=== PATIENT | female | born 1940 | race Caucasian/White ===

== ENCOUNTER → 2020-09-05 10:17 | Outpatient (CLI) | payer MEDICARE, SELFPAY ==
--- NOTE | ~2020-09-05 | MM_ITS ---
EXAMINATION: MM screening [facility] BI w adin HISTORY: Screening mammogram TECHNIQUE: Craniocaudal and mediolateral oblique 3-D tomosynthesis images were obtained and synthetic 2-D images were generated. CAD analysis was submitted and interpreted. COMPARISON: 04/2019, 07/11/2018, 04/05/2016 BREAST PARENCHYMAL COMPOSITION: There are scattered areas of fibroglandular density. FINDINGS: There is no evidence of suspicious mass, calcification, or architectural distortion to sugg est malignancy in either breast. There has been no suspicious interval change. IMPRESSION: 1. No mammographic evidence of malignancy. 2. Recommend routine screening mammography in one year. BI-RADS Category 1: Negative Reviewed, dictated and finalized at location A. LATOR PIN INSERTER
== END ==
PROVIDERS: PCP Internal Medicine; Visit Provider Obstetrics & Gynecology
DX: Z12.31 Encounter for screening mammogram for malignant neoplasm of breast (principal)
CPT/HCPCS: 77063; 77067

== ENCOUNTER → 2022-11-05 16:08 | Outpatient (CLI) | payer MEDICARE, SELFPAY ==
--- NOTE | ~2022-11-05 | MM_ITS ---
EXAMINATION: MM screening [facility] BI w adin HISTORY: Screening mammogram TECHNIQUE: Craniocaudal and mediolateral oblique 3-D tomosynthesis images were obtained and synthetic 2-D images were generated. CAD analysis was submitted and interpreted. COMPARISON: 09/05/2020, 04/24/2019, 07/11/2018 BREAST PARENCHYMAL COMPOSITION: There are scattered areas of fibroglandular density. FINDINGS: No suspicious mass, calcification, or architectural distortion are identified in either jonatan ast to suggest malignancy. There has been no suspicious interval change. IMPRESSION: 1. No mammographic evidence of malignancy. 2. Recommend routine screening mammography while the patient remains in good health. BI-RADS Category 1: Negative Reviewed, dictated and finalized at location A. IMPRESSION: 1. No mammographic evidence of malignancy. 2. Recommend routine screening mammography while the patient remains in good he alth. BI-RADS Category 1: Negative
== END ==
PROVIDERS: PCP Obstetrics & Gynecology; Visit Provider Obstetrics & Gynecology
DX: Z12.31 Encounter for screening mammogram for malignant neoplasm of breast (principal)
CPT/HCPCS: 77063; 77067

== ENCOUNTER → 2023-04-21 12:59 | Outpatient (CLI) | payer MEDICARE, SELFPAY ==
--- NOTE | ~2023-04-21 | DEXA_ITS ---
Bone Density Report Name: GERARDO WHITING Age: 82 Sex: Female Ethnicity: White Date of : 1940 Indication: postmenopausal; screening for osteoporosis; height loss; prior fracture; hysterectomy; Referring Provider: [place], Florentino Pruitt Study: Bone densitometry was performed. Exam Date: April 21, 2023 Accession number: [id number] Bone Density: Region BMD T-score Z-score Classification AP Spine (L1, L3, L4) 1.050 0.0 2.8 Normal Femoral Neck (Left) 0.607 -2.2 0.3 Osteopenia Total Hip (Left) 0.714 -1.9 0.4 Osteopenia World Health Organization criteria for BMD impression classify patients as: Normal (T-score at or above -1.0), Osteopenia (T-score between -1.0 and -2.5), or Osteoporosis (T-score at or below -2.5). 10-year Fracture Risk: FRAX not reported because: Prior hip or vertebral fracture Clinical Information Provided by Patient: Have had a previous hip or vertebral fracture Has had a low trauma fracture Has the following medical conditions: Hysterectomy Patient maximum height was 67 Menopause Age: 45 No regular weight bearing exercise Does not regularly consume dairy products Drinks caffeinated beverages Onset of menses at age 11 Number of children 2 Impression: The patient has low bone mass, based on the Left Femoral Neck T-score. The patient has risk factors, including: previous fracture. Discussion: INCREASED RISK OF FRACTURE DUE TO HISTORY OF FRACTURE. The patient's previous fracture puts the patient at high risk of a future fracture. In untreated patients, the risk of osteoporotic fracture increases approximately two-fold for each 1.0 SD decrease in T-score. Low bone density is not the only risk factor for fracture; also consider factors such as patient's age, frailty or poor health, risk of falling, risk of injury, previous osteoporotic fracture, family history of osteoporosis, cigarette smoking, low body weight, etc. Not everyone with a low trauma fracture has osteoporosis; osteomalacia and other metabolic bone disorders should also be considered. Patients who have osteoporosis should be evaluated for specific diseases and conditions (secondary causes) that may cause or contribute to bone loss and fracture risk. National Osteoporosis Foundation (NOF) recommends pharmacologic intervention for patients with a prior hip or vertebral fracture regardless of BMD T-score. The patient should follow a healthful lifestyle (good nutrition with adequate calcium and vitamin D, and appropriate weight-bearing exercise). Follow-Up: Consider a repeat BMD and Vertebral Fracture Assessment (VFA) exam in 2 years or sooner if medically necessary, to reassess this patient's status. Reported by: EMMY on 04/21/2023 1:43:00 PM. Reviewed, dictated and finalized at location AAnita JOEL
== END ==
PROVIDERS: PCP Internal Medicine; Visit Provider Internal Medicine
DX: Z78.0 Asymptomatic menopausal state (principal); M85.89 Other specified disorders of bone density and structure, multiple sites
CPT/HCPCS: 77080

== ENCOUNTER 2023-05-29 12:26 | Emergency (ER) | payer MEDICARE, SELFPAY ==
[2023-05-29 12:43] VITALS: BP 177/87; PULSE 72; RESP 16; TEMP 37; O2SAT 100
--- NOTE | 2023-05-29 16:57 | PC.NURSE ---
pt came to desk, stated i am going to go home encouraged to see pcp or return to ED if needed to be evaluated. pt agreeable
== END 2023-05-29 16:57 | disposition left against medical advice (07) ==
PROVIDERS: PCP Internal Medicine
DX: R51.9 Headache, unspecified (principal)
CPT/HCPCS: 99199

== ENCOUNTER 2023-07-26 09:27 | Emergency (ER) | payer MEDICARE, SELFPAY ==
[2023-07-26] VITALS (8 sets, daily range): BP systolic 136–164; BP diastolic 68–98; PULSE 56–68; RESP 16–20; TEMP 36.4–36.8; O2SAT 96–100
--- NOTE | 2023-07-26 13:14 | ECG_ITS ---
Measurements Intervals [place] Rate: 59 P: 25 DC: 191 QRS: -17 QRSD: 84 T: 30 QT: 369 QTc: 367 Interpretive Statements SINUS BRADYCARDIA INFERIOR INFARCT, AGE INDETERMINATE BASELINE WANDER- V1-V2, V6 ABNORMAL ECG COMPARED TO ECG 10/25/2018 06:36:07 SINUS BRADYCARDIA NOW PRESENT Electronically Signed On 07-26-2023 14:26:45 GANG VIBRATOR OPERATOR by Erik Garces D.O.
--- NOTE | 2023-07-26 13:14 | ED.GENADULT ---
HPI - General Adult General Chief complaint: Dizziness Stated complaint: dizzy/nausea Time Seen by Provider: 07/26/23 13:14 History of Present Illness HPI narrative: Patient is an 83-year-old female with history of hyperlipidemia, hypertension here today with dizziness. Patient notes that this morning she was getting up and taking down her some of her [place] decorations. She states she sat down and started noticing some dizziness. She describes this as feeling unsteady and thinking that if she were to stand up she may pass out. This was associated with some diaphoresis. She denies any associated chest pain or shortness of breath. She does note that she has had an intermittent headache with a pressure like sensation to the top over her head for the last week or so. She saw her PCP for this 5 days ago, had outpatient lab work and CT brain performed which were negative. Related Data Home Medications Medication Instructions Recorded Confirmed lisinopril 40 mg tablet 40 mg PO DAILY 09/02/21 11/30/22 lorazepam 1 mg tablet 1 mg PO DAILY PRN 09/02/21 11/30/22 metoprolol succinate 50 mg 50 mg PO DAILY 09/02/21 11/30/22 tablet,extended release 24 hr piroxicam 20 mg capsule 20 mg PO DAILY 09/02/21 11/30/22 pravastatin 40 mg tablet 40 mg PO QHS 09/02/21 11/30/22 tramadol 50 mg tablet 50 mg PO Q6H PRN 09/02/21 11/30/22 triamcinolone acetonide 0.1 % 1 applic topical DAILY 09/02/21 11/30/22 topical ointment Allergies Allergy/AdvReac Type Severity Reaction Status Date / Time ciprofloxacin Allergy Severe PASSES OUT Verified 05/29/23 12:47 Penicillins Allergy Intermediate Rash Verified 05/29/23 12:47 erythromycin base AdvReac Unknown Nausea and Verified 05/29/23 12:47 Vomiting Review of Systems Review of Systems: All systems reviewed & are unremarkable except as noted in HPI and below [facility] Past Medical History Medical History Anxiety Cataract High blood cholesterol Hypertension Screening mammogram, encounter for Surgical History Surgical History History of breast surgery at age 17 & 21 lt breast tumors removed--benign History of hip replacement 2008 rt hip History of knee surgery both knees History of total abdominal hysterectomy bilateral ovarian cysts--benign Family History Family History Father Lung cancer Social History Social History Smoking status: Never smoker Alcohol intake: never Substance use: never Substance use type: does not use Living arrangements: other Additional living arrangements comments: Occupation/Education: retired Gender identity (if verbalized by the patient): Female Sexual Orientation (if Verbalized by the Patient): Straight or Heterosexual Exam Narrative: GENERAL: Well-appearing, well-nourished, and in no acute distress. HEAD: Normocephalic, atraumatic. EYES: PERRLA and EOMI. ENT: Nares clear. Mucous membranes moist. NECK: Supple. CHEST: Clear to auscultation. No respiratory distress. HEART: Regular rate and rhythm. Normal peripheral pulses. ABDOMEN: Soft, nontender, nondistended. EXTREMITIES: Normal range of motion. No lower edema. SKIN: Warm, dry, no rash. Thickened dark skin plaques over her scalp and bilateral lower extremities. NEURO: No focal deficits. Alert and oriented x3. PSYCH: Normal mood and affect. Course Course Emergency Course: Chart review performed. Patient here with nausea, diaphoresis, and dizziness. Triage vitals grossly normal. OBGYN visit on 04/20/23 when she was seen for vaginal pain. Patient seen and evaluated. Asymptomatic at this time. Cardiac workup initiated for possible atypical cardiac presentation. Patient agreeable. No focal neurological deficits appreciated. Lab work and imagi
[2023-07-26 13:28] LABS: Basophils Percent Auto 0.5 % (0.2-1.2); Eosinophils Absolute Auto 0.2 K/mm3 (0-0.3); Eosinophils Percent Auto 2.7 % (0-4.4); Hematocrit 39.9 % (37.0-47.0); Hemoglobin 12.5 g/dL (12.0-15.0); Immature Granulocyte Absolute 0.03 K/mm3 (0.00-0.031); Immature Granulocyte Percent A 0.4 % (0-0.5); Lymphocytes Absolute Auto 2.29 K/mm3 (0.9-3.2); Lymphocytes Percent Auto 29.5 % (18.3-44.2); Mean Corpuscular HGB Conc 31.3 g/dl (32-36); Mean Corpuscular Hemoglobin 28.9 pg (26-34); Mean Corpuscular Volume 92.1 fl (80-100); Mean Platelet Volume 9.1 fl (7.4-10.4); Monocytes Absolute Auto 0.6 K/mm3 (0.1-0.6); Monocytes Percent Auto 7.2 % (2.6-8.5); Neutrophils Absolute Auto 4.6 K/mm3 (1.3-6.7); Neutrophils Percent Auto 59.7 % (45.5-73.1); Platelet Count Result 195 k/mm3 (150-375); Red Blood Count 4.33 M/mm3 (4.2-5.4); White Blood Count 7.8 K/mm3 (4.5-10.0)
[2023-07-26 13:42] LABS: Alanine Aminotransferase 19 U/L (6-35); Albumin Level 4.5 g/dL (3.5-5.1); Alkaline Phosphatase 80 U/L (38-126); Anion Gap 9 mmol/L (8-16); Aspartate Amino Transferase 26 U/L (14-36); Bilirubin,Total 0.7 mg/dL (0.2-1.3); Blood Urea Nitrogen 22 mg/dL (7-17); Calcium 10.3 mg/dL (8.4-10.2); Carbon Dioxide 26 mmol/L (22-30); Chloride 101 mmol/L (98-107); Estimated CRCL calculation 38 ml/min; Estimated Glomerular Filt Rate 53; Glucose 110 mg/dL (65-110); Lipase 83 U/L (23-300); Magnesium 1.5 mg/dL (1.6-2.3); Potassium 3.9 mmol/L (3.4-5.0); Prothrombin Time 13.6 Seconds (11.1-14.7); Sodium 136 mmol/L (137-145)
[2023-07-26 13:43] LABS: Partial Thromboplastin Time 26.8 SECONDS (22.3-36.8)
[2023-07-26] MEDS: MAGNESIUM SULF 2 GM/WATER 50ML 2 GM/50 ML BAG IVPB (13:53)
[2023-07-26 13:55] LABS: Troponin I < 0.012 ng/mL (0.000-0.034)
[2023-07-26 14:29] LABS: Influenza A QL RT-PCR Negative (Negative); Influenza B QL RT-PCR Negative (Negative); RSV RNA, RT-PCR Negative (Negative); SARS-CoV-2 RNA PCR Negative (Negative)
[2023-07-26] MEDS: SODIUM CHLORIDE 0.9% IV 1,000 ML 999 ML IV CONT (15:50)
--- NOTE | 2023-07-26 16:10 | ECG_ITS ---
Measurements Intervals [place] Rate: 57 P: -1 TX: 172 QRS: -13 QRSD: 90 T: 25 QT: 384 QTc: 376 Interpretive Statements SINUS BRADYCARDIA BASELINE ARTIFACT- I, II, III, AVR, AVL, AVF BORDERLINE ECG COMPARED TO ECG 07/26/2023 13:36:56 NO SIGNIFICANT CHANGES Electronically Signed On 07-26-2023 16:55:43 AD OPERATIONS COORDINATOR by Erik Garces D.O.
[2023-07-26 16:52] LABS: Troponin I < 0.012 ng/mL (0.000-0.034)
== END 2023-07-26 18:32 | disposition home or self-care (01) ==
PROVIDERS: Emergency Provider Student in an Organized Health Care Education/Training Program; PCP Internal Medicine
DX: R42 Dizziness and giddiness (principal); E83.42 Hypomagnesemia; R51.9 Headache, unspecified; E78.5 Hyperlipidemia, unspecified; I10 Essential (primary) hypertension; Z20.822 Contact with and (suspected) exposure to COVID-19
CPT/HCPCS: 36415; 80053; 83690; 83735; 84484; 85025; 85610; 85730; 87637; 93005; 96361; 96365; 99284; J3475; J7030

== ENCOUNTER 2023-09-01 11:25 | Emergency (ER) | payer MEDICARE, SELFPAY ==
--- NOTE | ~2023-09-01 | XR_ITS ---
EXAMINATION: XR chest 2V DATE: 09/01/2023 12:18 INDICATION: Dizziness, nausea and weakness TECHNIQUE: frontal and lateral views of the chest were obtained. COMPARISON: Chest radiograph dated 10/25/2018 FINDINGS: Minimal streaky atelectasis at the bilateral lung bases. No pulmonary edema, pleural effusion or pneu mothorax. The cardiomediastinal silhouette is normal. 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 Mild thoracic kyphosis with chronic anterior wedging of a midthoracic vertebral body. Severe spondylosis. IMPRESSION: 1. Minimal bibasilar atelectasis. Reviewed, dictated and finalized at location A. ITAL ADMINISTRATIVE ASSISTANT
--- NOTE | 2023-09-01 11:29 | ECG_ITS ---
Measurements Intervals [place] Rate: 68 P: 43 IA: 185 QRS: -22 QRSD: 87 T: 45 QT: 348 QTc: 372 Interpretive Statements SINUS RHYTHM BORDERLINE LEFT AXIS DEVIATION [QRS AXIS < -20] COMPARED TO ECG 07/26/2023 16:16:42 SINUS RHYTHM NOW PRESENT Electronically Signed On 09-01-2023 15:01:20 SEAM PRESS OPERATOR by Akilah Mena M.D.
[2023-09-01 11:32] VITALS: BP 171/76; PULSE 66; RESP 12; TEMP 36.4; O2SAT 100
[2023-09-01 11:46] VITALS: PULSE 65
[2023-09-01 12:03] LABS: Basophils Percent Auto 0.4 % (0.2-1.2); Eosinophils Absolute Auto 0.3 K/mm3 (0-0.3); Eosinophils Percent Auto 3.2 % (0-4.4); Hematocrit 38.6 % (37.0-47.0); Hemoglobin 12.5 g/dL (12.0-15.0); Immature Granulocyte Absolute 0.01 K/mm3 (0.00-0.031); Immature Granulocyte Percent A 0.1 % (0-0.5); Lymphocytes Absolute Auto 1.99 K/mm3 (0.9-3.2); Lymphocytes Percent Auto 24.8 % (18.3-44.2); Mean Corpuscular HGB Conc 32.4 g/dl (32-36); Mean Corpuscular Hemoglobin 29.1 pg (26-34); Mean Platelet Volume 9.3 fl (7.4-10.4); Monocytes Absolute Auto 0.7 K/mm3 (0.1-0.6); Monocytes Percent Auto 8.2 % (2.6-8.5); Neutrophils Absolute Auto 5.1 K/mm3 (1.3-6.7); Neutrophils Percent Auto 63.3 % (45.5-73.1); Platelet Count Result 171 k/mm3 (150-375); Red Blood Count 4.29 M/mm3 (4.2-5.4)
[2023-09-01 12:14] LABS: Alanine Aminotransferase 17 U/L (6-35); Albumin Level 4.1 g/dL (3.5-5.1); Alkaline Phosphatase 82 U/L (38-126); Anion Gap 6 mmol/L (8-16); Aspartate Amino Transferase 24 U/L (14-36); Blood Urea Nitrogen 23 mg/dL (7-17); Calcium 10.5 mg/dL (8.4-10.2); Carbon Dioxide 26 mmol/L (22-30); Chloride 102 mmol/L (98-107); Estimated CRCL calculation 39 ml/min; Estimated Glomerular Filt Rate 53; Glucose 97 mg/dL (65-110); Potassium 4.4 mmol/L (3.4-5.0); Sodium 134 mmol/L (137-145)
[2023-09-01 12:44] LABS: Appearance Urine Clear (Clear); Bilirubin Urine Negative (Negative); Blood Urine Negative (Negative); Color Urine Yellow (Yellow); Glucose Urine UA Negative (Negative); Ketones Urine Negative (Negative); Leukocyte Esterase Ur Negative LEU/UL (Negative); Nitrate Urine Negative (Negative); Protein Urine Negative (Negative); Specific Grav Ur 1.006 (1.001-1.035); Urobilinogen Urine 0.2 mg/dL (<2.0); pH Urine 6.5 (5.0-9.0)
[2023-09-01 12:45] LABS: Add Urine Microscopic? NO
[2023-09-01 13:27] VITALS: BP 153/81; PULSE 69; RESP 15; O2SAT 100
[2023-09-01 13:36] LABS: Magnesium 1.9 mg/dL (1.6-2.3)
--- NOTE | 2023-09-01 14:11 | ED.GENADULT ---
HPI - General Adult General Chief complaint: Weakness Stated complaint: WEAK AND DIZZY Time Seen by Provider: 09/01/23 12:59 History of Present Illness HPI narrative: Patient is an 83-year-old female who presents to the emergency this afternoon complaining of mild weakness and dizziness. Patient states that she was here approximately 2 weeks ago for similar symptoms and at that time her magnesium level was noted to be low. It was replaced and patient was placed on oral magnesium which she has been taking as prescribed. Patient states that when she woke up this and got out of bed she felt a little dizzy. When further questioned regarding the dizziness, patient denies any room spinning sensation and denies any near syncopal episodes. States that she only feels that way when she gets up from lying down or sitting down too fast. Patient denies any additional symptoms including chest pain, shortness of breath, nausea, vomiting, abdominal pain, dysuria, hematuria, constipation, diarrhea, melena, hematochezia, fevers or chills. Patient also denies any headaches, blurry visions, focal weakness, numbness and or tingling. There are no other modifying, alleviating, or precipitating factors at this time. Related Data Home Medications Medication Instructions Recorded Confirmed lisinopril 40 mg tablet 40 mg PO DAILY 09/02/21 11/30/22 lorazepam 1 mg tablet 1 mg PO DAILY PRN 09/02/21 11/30/22 metoprolol succinate 50 mg 50 mg PO DAILY 09/02/21 11/30/22 tablet,extended release 24 hr piroxicam 20 mg capsule 20 mg PO DAILY 09/02/21 11/30/22 pravastatin 40 mg tablet 40 mg PO QHS 09/02/21 11/30/22 tramadol 50 mg tablet 50 mg PO Q6H PRN 09/02/21 11/30/22 triamcinolone acetonide 0.1 % 1 applic topical DAILY 09/02/21 11/30/22 topical ointment Allergies Allergy/AdvReac Type Severity Reaction Status Date / Time ciprofloxacin Allergy Severe PASSES OUT Verified 05/29/23 12:47 Penicillins Allergy Intermediate Rash Verified 05/29/23 12:47 erythromycin base AdvReac Unknown Nausea and Verified 05/29/23 12:47 Vomiting Review of Systems Review of Systems: All systems are reviewed and are negative unless stated otherwise in the [facility] Past Medical History Medical History Anxiety Cataract High blood cholesterol Hypertension Screening mammogram, encounter for Surgical History Surgical History History of breast surgery at age 17 & 21 lt breast tumors removed--benign History of hip replacement 2008 rt hip History of knee surgery both knees History of total abdominal hysterectomy bilateral ovarian cysts--benign Family History Family History Father Lung cancer Social History Social History Smoking status: Never smoker Alcohol intake: never Substance use: never Substance use type: does not use Living arrangements: other Additional living arrangements comments: Occupation/Education: retired Gender identity (if verbalized by the patient): Female Sexual Orientation (if Verbalized by the Patient): Straight or Heterosexual Exam Narrative: General: Alert, awake, afebrile, in no acute distress. HEENT: PERRL, no rhinorrhea, no post nasal drip, oropharynx clear. Neck: Trachea midline, no JVD, no lymphadenopathy. Cardiovascular: Regular rate and rhythm, no murmurs, rubs or gallops, no peripheral edema. Respiratory: Clear to auscultation bilaterally, no tachypnea, no wheezing, no rhonchi, no rubs, no respiratory distress. Abdomen: Soft, nontender, nondistended, no rebound, no guarding, no peritoneal signs. Musculoskeletal: No joint swelling or deformity, normal muscle tone. Skin: No rashes or petechia, no signs of infection. Psychiatric: Alert and oriented, normal behavior and judgment fo
[2023-09-01 14:28] VITALS: BP 153/65; PULSE 76; RESP 19; O2SAT 97
== END 2023-09-01 15:41 | disposition home or self-care (01) ==
PROVIDERS: Emergency Provider Emergency Medicine; PCP Internal Medicine
DX: R53.1 Weakness (principal); R42 Dizziness and giddiness; E78.00 Pure hypercholesterolemia, unspecified; I10 Essential (primary) hypertension; F41.9 Anxiety disorder, unspecified; Z96.641 Presence of right artificial hip joint; Z90.710 Acquired absence of both cervix and uterus; R94.31 Abnormal electrocardiogram [ECG] [EKG]
CPT/HCPCS: 36415; 71046; 80053; 81003; 83735; 85025; 93005; 99284

== ENCOUNTER 2023-09-19 16:35 | Emergency (ER) | payer MEDICARE, SELFPAY ==
[2023-09-19 17:00] VITALS: BP 157/90; PULSE 63; RESP 16; TEMP 37; O2SAT 99
--- NOTE | 2023-09-19 18:49 | ED.WEAKNESS ---
HPI - Weakness General Chief complaint: Weakness <ECTOR Ching Last Filed: 09/19/23 18:56> Stated complaint: Weakness <ECTOR Ching Last Filed: 09/19/23 18:56> Time Seen by Provider: 09/19/23 18:49 <ECTOR Ching Last Filed: 09/19/23 18:56> Focused HPI: Patient is an 83 y/o female who presents to the ED via EMS with c/o weakness and dizziness. Patient is a resident of [place]. Patient reports she began feeling unwell this afternoon, c/o dizziness and generalized malaise. Describes the dizziness as lightheaded. She states she tried eating something but denied improvement. EMS was then called. Patient states she has had similar sx's in the past which was related to hypomagnesemia. Son says sx's present the same way each time. Patient states she feels better after IV infusion of magnesium and fluids. She was reportedly discharged on magnesium supplements last time, but son is unsure of this. Patient denies syncope, N/V, CP, SOB. GENERAL: Elderly, frail, and in no acute distress. HEAD: Normocephalic, atraumatic. CHEST: Clear to auscultation. ?No respiratory distress. HEART: Regular rate and rhythm.? NEURO: ?Alert and oriented x3. Patient screened in triage and initial orders placed.? ?Additional care and disposition to be based upon?diagnostic testing and treatment. <ECTOR Ching Last Filed: 09/19/23 18:56> Source: patient <ECTOR Ching Last Filed: 09/19/23 18:56> Mode of arrival: EMS <ECTOR Ching Last Filed: 09/19/23 18:56> Limitations: no limitations <ECTOR Ching Last Filed: 09/19/23 18:56> Related Data Home medications: Home Medications Medication Instructions Recorded Confirmed lisinopril 40 mg tablet 40 mg PO DAILY 09/02/21 11/30/22 lorazepam 1 mg tablet 1 mg PO DAILY PRN 09/02/21 11/30/22 metoprolol succinate 50 mg 50 mg PO DAILY 09/02/21 11/30/22 tablet,extended release 24 hr piroxicam 20 mg capsule 20 mg PO DAILY 09/02/21 11/30/22 pravastatin 40 mg tablet 40 mg PO QHS 09/02/21 11/30/22 tramadol 50 mg tablet 50 mg PO Q6H PRN 09/02/21 11/30/22 triamcinolone acetonide 0.1 % 1 applic topical DAILY 09/02/21 11/30/22 topical ointment <Beth Valdez PA-C - Last Filed: 09/19/23 18:56> Allergies/Adverse reactions: Allergies Allergy/AdvReac Type Severity Reaction Status Date / Time ciprofloxacin Allergy Severe PASSES OUT Verified 05/29/23 12:47 Penicillins Allergy Intermediate Rash Verified 05/29/23 12:47 erythromycin base AdvReac Unknown Nausea and Verified 05/29/23 12:47 Vomiting <Beth Valdez PA-C - Last Filed: 09/19/23 18:56> Review of Systems Review of Systems: All systems reviewed & are unremarkable except as noted in HPI and below <Mariaelena Rose MD - Last Filed: 09/19/23 20:56> [facility] Past Medical History Medical History: Medical History Anxiety Cataract High blood cholesterol Hypertension Screening mammogram, encounter for <Beth Valdez PA-C - Last Filed: 09/19/23 18:56> Surgical History Surgical History: Surgical History History of breast surgery at age 17 & 21 lt breast tumors removed--benign History of hip replacement 2007 rt hip History of knee surgery both knees History of total abdominal hysterectomy bilateral ovarian cysts--benign <ECTOR Ching Last Filed: 09/19/23 18:56> Family History Family History: Family History Father Lung cancer <ECTOR Ching Last Filed: 09/19/23 18:56> Social History Social History: Social History Smoking status: Never smoker Alcohol intake: never Substan
--- NOTE | 2023-09-19 18:56 | ECG_ITS ---
Measurements Intervals [place] Rate: 61 P: 35 [place]: 193 QRS: -22 QRSD: 86 T: 28 QT: 363 QTc: 368 Interpretive Statements SINUS RHYTHM BORDERLINE LEFT AXIS DEVIATION [QRS AXIS < -20] COMPARED TO ECG 09/01/2023 11:33:33 NO SIGNIFICANT CHANGES Electronically Signed On 09-20-2023 12:25:10 THERAPEUTIC ACTIVITIES SERVICES WORKER by Lamar Vidal M.D.
[2023-09-19 19:06] LABS: Basophils Percent Auto 0.5 % (0.2-1.2); Eosinophils Absolute Auto 0.3 K/mm3 (0-0.3); Eosinophils Percent Auto 3.7 % (0-4.4); Hemoglobin 11.8 g/dL (12.0-15.0); Immature Granulocyte Absolute 0.03 K/mm3 (0.00-0.031); Immature Granulocyte Percent A 0.4 % (0-0.5); Lymphocytes Absolute Auto 2.73 K/mm3 (0.9-3.2); Lymphocytes Percent Auto 35.7 % (18.3-44.2); Mean Corpuscular HGB Conc 31.9 g/dl (32-36); Mean Corpuscular Hemoglobin 29.2 pg (26-34); Mean Corpuscular Volume 91.6 fl (80-100); Monocytes Absolute Auto 0.6 K/mm3 (0.1-0.6); Monocytes Percent Auto 8.2 % (2.6-8.5); Neutrophils Absolute Auto 3.9 K/mm3 (1.3-6.7); Neutrophils Percent Auto 51.5 % (45.5-73.1); Platelet Count Result 202 k/mm3 (150-375); Red Blood Count 4.04 M/mm3 (4.2-5.4); Red Cell Distribution Width 12.9 % (11.5-14.5); White Blood Count 7.6 K/mm3 (4.5-10.0)
[2023-09-19 19:14] LABS: Alanine Aminotransferase 17 U/L (6-35); Albumin Level 4.1 g/dL (3.5-5.1); Alkaline Phosphatase 87 U/L (38-126); Anion Gap 7 mmol/L (8-16); Aspartate Amino Transferase 26 U/L (14-36); Bilirubin,Total 0.7 mg/dL (0.2-1.3); Blood Urea Nitrogen 21 mg/dL (7-17); Calcium 10.5 mg/dL (8.4-10.2); Carbon Dioxide 25 mmol/L (22-30); Chloride 102 mmol/L (98-107); Estimated CRCL calculation 40 ml/min; Estimated Glomerular Filt Rate 60; Glucose 103 mg/dL (65-110); Magnesium 1.9 mg/dL (1.6-2.3); Potassium 4.1 mmol/L (3.4-5.0); Sodium 134 mmol/L (137-145)
[2023-09-19] MEDS: SODIUM CHLORIDE 0.9% IV 1,000 ML 999 ML IV CONT (19:46)
[2023-09-19 20:03] LABS: Appearance Urine Clear (Clear); Bilirubin Urine Negative (Negative); Blood Urine Negative (Negative); Color Urine Yellow (Yellow); Glucose Urine UA Negative (Negative); Ketones Urine Negative (Negative); Leukocyte Esterase Ur Negative LEU/UL (Negative); Nitrate Urine Negative (Negative); Protein Urine Negative (Negative); Specific Grav Ur 1.005 (1.001-1.035); Urobilinogen Urine 0.2 mg/dL (<2.0)
[2023-09-19 20:14] LABS: Add Urine Microscopic? NO
[2023-09-19 21:24] VITALS: BP 150/72; PULSE 74; RESP 15; O2SAT 100
== END 2023-09-19 21:25 ==
PROVIDERS: Physician Assistant; Emergency Provider Emergency Medicine; PCP Internal Medicine
DX: R42 Dizziness and giddiness (principal); E78.00 Pure hypercholesterolemia, unspecified; I10 Essential (primary) hypertension; F41.9 Anxiety disorder, unspecified; Z96.641 Presence of right artificial hip joint; Z90.710 Acquired absence of both cervix and uterus
CPT/HCPCS: 36415; 80053; 81003; 83735; 85025; 93005; 96360; 99283; J7030

== ENCOUNTER 2024-03-17 10:20 | Emergency (ER) | payer MEDICARE, SELFPAY ==
--- NOTE | ~2024-03-17 | XR_ITS ---
EXAMINATION: XR chest 1V portable Exam Date/Time: 03/17/2024 13:45 CDT HISTORY: SOA Comparison: 09/01/2023. RESULT: Lines, tubes, and devices: None. Lungs and pleura: Mild bibasilar scar/atelectasis. Calcified granulomatous disease. Cardiomediastinal silhouette: Stable. Other: No acute osseous or upper abdominal finding. Advanced bilateral shoulder osteoarthritis. IMPRESSION: No acute cardiopulmonary process. Reviewed, dictated and finalized at location K.
[2024-03-17 10:26] VITALS: BP 183/83; PULSE 68; RESP 16; TEMP 36.6; O2SAT 100
[2024-03-17 10:31] VITALS: BP 167/75; PULSE 70; RESP 20; TEMP 36.6; O2SAT 100
--- NOTE | 2024-03-17 10:31 | ECG_ITS ---
Test Date: 2024-03-17 12:36:28 Measurements Intervals [place] Rate: 64 P: 49 AK: 184 QRS: -10 QRSD: 89 T: 29 QT: 377 QTc: 390 Interpretive Statements SINUS RHYTHM No previous ECG available for comparison Electronically Signed On 03-18-2024 10:30:06 CDT by Akilah Mena M.D.
[2024-03-17 11:01] VITALS: BP 182/77; PULSE 64; RESP 18; TEMP 36.4; O2SAT 100
[2024-03-17 11:46] LABS: Alanine Aminotransferase 14 U/L (6-35); Albumin Level 4.4 g/dL (3.5-5.1); Alkaline Phosphatase 77 U/L (38-126); Anion Gap 10 mmol/L (4-12); Aspartate Amino Transferase 28 U/L (14-36); Bilirubin,Total 0.8 mg/dL (0.2-1.3); Blood Urea Nitrogen 19 mg/dL (7-17); Calcium 10.6 mg/dL (8.4-10.2); Carbon Dioxide 25 mmol/L (22-30); Chloride 99 mmol/L (98-107); Estimated CRCL calculation 44 ml/min; Estimated Glomerular Filt Rate > 60; Glucose 108 mg/dL (65-110); Potassium 3.6 mmol/L (3.4-5.0); Sodium 134 mmol/L (137-145)
[2024-03-17 11:47] LABS: Basophils Percent Auto 0.4 % (0.2-1.2); Eosinophils Absolute Auto 0.1 K/mm3 (0-0.3); Eosinophils Percent Auto 1.8 % (0-4.4); Hematocrit 38.5 % (37.0-47.0); Hemoglobin 12.7 g/dL (12.0-15.0); Immature Granulocyte Absolute 0.02 K/mm3 (0.00-0.031); Immature Granulocyte Percent A 0.3 % (0-0.5); Lymphocytes Absolute Auto 1.69 K/mm3 (0.9-3.2); Lymphocytes Percent Auto 23.4 % (18.3-44.2); Mean Corpuscular Hemoglobin 28.9 pg (26-34); Mean Corpuscular Volume 87.7 fl (80-100); Mean Platelet Volume 10.2 fl (7.4-10.4); Monocytes Absolute Auto 0.6 K/mm3 (0.1-0.6); Monocytes Percent Auto 7.6 % (2.6-8.5); Neutrophils Absolute Auto 4.8 K/mm3 (1.3-6.7); Neutrophils Percent Auto 66.5 % (45.5-73.1); Platelet Count Result 155 k/mm3 (150-375); Red Blood Count 4.39 M/mm3 (4.2-5.4); White Blood Count 7.2 K/mm3 (4.5-10.0)
[2024-03-17 12:00] VITALS: BP 176/76; PULSE 63; RESP 20; TEMP 36.6; O2SAT 100
[2024-03-17] MEDS: LORazepam (*CRX) 1 MG TABLET PO (12:50)
[2024-03-17 12:59] LABS: Add Urine Microscopic? NO; Appearance Urine Clear (Clear); Bilirubin Urine Negative (Negative); Blood Urine Negative (Negative); Color Urine Yellow (Yellow); Glucose Urine UA Negative (Negative); Ketones Urine Negative (Negative); Leukocyte Esterase Ur Negative LEU/UL (Negative); Nitrate Urine Negative (Negative); Protein Urine Negative (Negative); Specific Grav Ur 1.007 (1.001-1.035); Urobilinogen Urine 0.2 mg/dL (<2.0)
[2024-03-17 13:05] VITALS: BP 168/70; PULSE 66; RESP 20; TEMP 36.6; O2SAT 100
[2024-03-17 13:30] VITALS: BP 166/68; PULSE 75; RESP 18; TEMP 36.5; O2SAT 100
--- NOTE | 2024-03-17 13:38 | ED.GENADULT ---
HPI - General Adult General Chief complaint: Anxiety Stated complaint: not feeling right since yesterday Time Seen by Provider: 03/17/24 10:22 History of Present Illness HPI narrative: patient is an 83-year-old female who presents ER with reports of shortness of breath and anxiousness. Patient has known anxiety. She takes Ativan 3 times a day. Denies fevers or chills or sweats. No pain in her chest or abdomen. She does have dementia and does not fully remember conversation occurred at her facility prior to her arrival here. Related Data Home Medications Medication Instructions Recorded Confirmed lisinopril 40 mg tablet 40 mg PO DAILY 09/02/21 11/30/22 lorazepam 1 mg tablet 1 mg PO DAILY PRN 09/02/21 11/30/22 metoprolol succinate 50 mg 50 mg PO DAILY 09/02/21 11/30/22 tablet,extended release 24 hr piroxicam 20 mg capsule 20 mg PO DAILY 09/02/21 11/30/22 pravastatin 40 mg tablet 40 mg PO QHS 09/02/21 11/30/22 tramadol 50 mg tablet 50 mg PO Q6H PRN 09/02/21 11/30/22 triamcinolone acetonide 0.1 % 1 applic topical DAILY 09/02/21 11/30/22 topical ointment Allergies Allergy/AdvReac Type Severity Reaction Status Date / Time ciprofloxacin Allergy Severe PASSES OUT Verified 05/29/23 12:47 Penicillins Allergy Intermediate Rash Verified 05/29/23 12:47 erythromycin base AdvReac Unknown Nausea and Verified 05/29/23 12:47 Vomiting Review of Systems Review of Systems: ROS unobtainable: Yes unobtainable due to mental status PMFSH Past Medical History Medical History Anxiety Cataract High blood cholesterol Hypertension Screening mammogram, encounter for Surgical History Surgical History History of breast surgery at age 17 & 21 lt breast tumors removed--benign History of hip replacement 2007 rt hip History of knee surgery both knees History of total abdominal hysterectomy bilateral ovarian cysts--benign Family History Family History Father Lung cancer Social History Social History Smoking status: Never smoker Alcohol intake: never Substance use: never Substance use type: does not use Living arrangements: other Additional living arrangements comments: Occupation/Education: retired Gender identity (if verbalized by the patient): Female Sexual Orientation (if Verbalized by the Patient): Straight or Heterosexual Exam Narrative: GENERAL: Well-appearing, well-nourished, and in no acute distress. HEAD: Normocephalic, atraumatic. ENT: Mucous membranes moist. CHEST: Clear to auscultation. No respiratory distress. HEART: Regular rate and rhythm. Normal peripheral pulses. ABDOMEN: Soft, nontender, nondistended. EXTREMITIES: Normal range of motion. No edema. SKIN: Warm, dry, no rash. NEURO:. Alert and oriented x2. PSYCH: Normal mood and affect. Course Course Emergency Course: Resting comfortably. Lab work unremarkable including CBC and BMP. Urinalysis without infection. Received oral Ativan 1 mg. Discharge home. Vital Signs Vital signs: Vital Signs Temperature 97.9 F 03/17/24 10:26 Pulse Rate 68 03/17/24 10:26 Respiratory Rate 16 03/17/24 10:26 Blood Pressure 183/83 H 03/17/24 10:26 Pulse Oximetry 100 03/17/24 10:26 Oxygen Delivery Room Air 03/17/24 10:26 Temperature 97.7 F 03/17/24 13:30 Pulse Rate 75 03/17/24 13:30 Respiratory Rate 18 03/17/24 13:30 Blood Pressure 166/68 H 03/17/24 13:30 Pulse Oximetry 100 03/17/24 13:30 Oxygen Delivery Room Air 03/17/24 10:26 Medical Decision Making Vital Signs Vital Signs: Vital Signs Temperature 97.9 F 03/17/24 10:26 Pulse Rate 68 03/17/24 10:26 Respiratory Rate 16 03/17/24 10:26 Blood Pressure 183/83 H 03/17/24 10:26
--- NOTE | 2024-03-17 13:48 | PC.NURSE ---
called daughter Rika and explained d/c instructions and she voiced understanding. Rika is going to come to ED to pick pt up
== END 2024-03-17 14:14 | disposition home or self-care (01) ==
PROVIDERS: Emergency Provider Emergency Medicine; PCP Internal Medicine
DX: F41.9 Anxiety disorder, unspecified (principal); I10 Essential (primary) hypertension; E78.00 Pure hypercholesterolemia, unspecified; H26.9 Unspecified cataract; Z96.641 Presence of right artificial hip joint; Z90.710 Acquired absence of both cervix and uterus
CPT/HCPCS: 36415; 71045; 80053; 81003; 85025; 93005; 99283; A9270

== ENCOUNTER 2024-03-18 11:40 | Emergency (ER) | payer MEDICARE, SELFPAY ==
--- NOTE | ~2024-03-18 | XR_ITS ---
EXAMINATION: XR wrist RT min 3V DATE: 03/18/2024 11:55 INDICATION: Right wrist pain. Fall. TECHNIQUE: 3 views of right wrist were obtained. COMPARISON: None. FINDINGS: There is a comminuted fractured of distal radius with involvement of the distal radioulnar joint and distal articular surface. The main distal fracture fragment demonstrates impaction, 2 mm do rsal displacement, and dorsal angulation. There is 10 degrees dorsal tilt of the distal articular jeannette face. There is an avulsion fracture of the ulnar styloid. There is moderate osteoarthritis of triscap he joint and severe osteoarthritis of first carpometacarpal joint. IMPRESSION: 1. Comminuted fracture of distal radius. 2. Avulsion fracture of the ulnar styloid. 3. Polyarticular osteoarthritis. Reviewed, dictated and finalized at location A.
--- NOTE | ~2024-03-18 | CT_ITS ---
EXAMINATION: CT brain wo con DATE: 03/18/2024 13:09 INDICATION: Fall. TECHNIQUE: Computed tomography (CT) of the head was performed without intravenous contrast. The mA wa s adjusted according to patient size. Iterative reconstruction technique was employed. The dose-lengt h product was 605.33 mGy-cm. COMPARISON: Head CT 10/25/18 FINDINGS: There are scattered areas of low attenuation in the cerebral white matter, which is within normal limits for the patient's age. There is a 2.0 cm extra-axial mass medial to left frontal lobe t hat is isodense to almanza matter, consistent with a meningioma. There is no acute ischemic infarct or i ntracranial hemorrhage. The ventricles are normal in size. There is left frontal scalp soft tissue sw elling. There is mild mucosal thickening in the paranasal sinuses. The orbits are normal. The mastoid air cells are normal. There are chronic scattered skin lesions. IMPRESSION: 1. 2.0 cm extra-axial mass medial to left frontal lobe, consistent with a meningioma. Reviewed, dictated and finalized at location A. IMPRESSION: 1. 2.0 cm extra-axial mass medial to left frontal lobe, consistent with a menin gioma.
--- NOTE | ~2024-03-18 | CT_ITS ---
EXAMINATION: CT cervical spine wo con DATE: 03/18/2024 13:09 INDICATION: Head injury. Fall. TECHNIQUE: Computed tomography (CT) of the cervical spine was performed without intravenous contrast. Automated exposure control and iterative reconstruction technique were employed. The dose-length pro duct was 155.47 mGy-cm. COMPARISON: None FINDINGS: There are nodules in the thyroid measuring up to 8 mm, likely not clinically significant. T here is 2 mm retrolisthesis of C4 on C5 and C5 on C6. Vertebral body heights are normal. There is mil dly decreased disc height at C2-C3, moderately decreased disc height at C3-C4, and severely decreased disc height from C4-C5 through C6-C7. The following disc levels are specifically discussed: C2-C3: There is moderate right and mild left uncovertebral joint osteoarthritis. There is severe bila teral facet joint osteoarthritis. There is mild bilateral neural foraminal stenosis. There is no cent ral canal stenosis. C3-C4: There is moderate right and severe left uncovertebral joint osteoarthritis. There is severe bi lateral facet joint osteoarthritis. There is moderate bilateral neural foraminal stenosis. There is m ild central canal stenosis. C4-C5: There is severe bilateral uncovertebral joint osteoarthritis. There is severe bilateral facet joint osteoarthritis. There is moderate bilateral neural foraminal stenosis. There is mild central ca nal stenosis. C5-C6: There is severe bilateral uncovertebral joint osteoarthritis. There is severe bilateral facet joint osteoarthritis. There is moderate bilateral neural foraminal stenosis. There is mild central ca nal stenosis. C6-C7: There is severe bilateral uncovertebral joint osteoarthritis. There is severe bilateral facet joint osteoarthritis. There is moderate bilateral neural foraminal stenosis. There is mild central ca nal stenosis. C7-T1: There is no uncovertebral joint osteoarthritis. There is severe bilateral facet joint osteoart hritis. There is mild bilateral neural foraminal stenosis. There is no central canal stenosis. IMPRESSION: 1. No fracture. 2. Severe cervical spondylosis. Reviewed, dictated and finalized at location A.
[2024-03-18 11:41] VITALS: BP 133/93; PULSE 98; RESP 16; TEMP 36.4; O2SAT 100
--- NOTE | 2024-03-18 14:25 | ED.FALL ---
HPI - Fall General Chief Complaint: Fall Stated Complaint: fall Time Seen by Provider: 03/18/24 13:45 History of Present Illness HPI Narrative: 83-year-old female presenting after a fall. States that she was on the phone with her niece when she tried to sit on the edge of her bed and then her but slipped off and she fell to the ground. Landed on her right wrist and bumped the left side of her head. No loss of consciousness. Complains of right wrist pain. Denies neck or back pain. No further complaints. Related Data Home Medications Medication Instructions Recorded Confirmed lisinopril 40 mg tablet 40 mg PO DAILY 09/02/21 11/30/22 lorazepam 1 mg tablet 1 mg PO DAILY PRN 09/02/21 11/30/22 metoprolol succinate 50 mg 50 mg PO DAILY 09/02/21 11/30/22 tablet,extended release 24 hr piroxicam 20 mg capsule 20 mg PO DAILY 09/02/21 11/30/22 pravastatin 40 mg tablet 40 mg PO QHS 09/02/21 11/30/22 tramadol 50 mg tablet 50 mg PO Q6H PRN 09/02/21 11/30/22 triamcinolone acetonide 0.1 % 1 applic topical DAILY 09/02/21 11/30/22 topical ointment Allergies Allergy/AdvReac Type Severity Reaction Status Date / Time ciprofloxacin Allergy Severe PASSES OUT Verified 05/29/23 12:47 Penicillins Allergy Intermediate Rash Verified 05/29/23 12:47 erythromycin base AdvReac Unknown Nausea and Verified 05/29/23 12:47 Vomiting Review of Systems Review of Systems: All systems reviewed & are unremarkable except as noted in HPI and below PMFSH Past Medical History Medical History Anxiety Cataract High blood cholesterol Hypertension Screening mammogram, encounter for Surgical History Surgical History History of breast surgery at age 17 & 21 lt breast tumors removed--benign History of hip replacement 2007 rt hip History of knee surgery both knees History of total abdominal hysterectomy bilateral ovarian cysts--benign Family History Family History Father Lung cancer Social History Social History Smoking status: Never smoker Alcohol intake: never Substance use: never Substance use type: does not use Living arrangements: other Additional living arrangements comments: Occupation/Education: retired Gender identity (if verbalized by the patient): Female Sexual Orientation (if Verbalized by the Patient): Straight or Heterosexual Exam Narrative: GENERAL: Well-appearing In no acute distress, pleasant and cooperative HEAD: Normocephalic, large hematoma left forehead EYES: PERRLA and EOMI. ENT: Nares clear, no rhinorrhea or epistaxis. Mucous membranes moist. NECK: Supple. no midline tenderness CHEST: No respiratory distress. HEART: Regular rate and rhythm ABDOMEN: Soft, nontender, nondistended EXTREMITIES: right wrist is swollen and ecchymotic and diffusely tender; neurovascularly intact SKIN: Warm, dry, no rash. NEURO: Alert and oriented x3. PSYCH: Normal mood and affect. Course Vital Signs Vital signs: Vital Signs Temperature 97.6 F 03/18/24 11:41 Pulse Rate 98 03/18/24 11:41 Respiratory Rate 16 03/18/24 11:41 Blood Pressure 133/93 H 03/18/24 11:41 Pulse Oximetry 100 03/18/24 11:41 Temperature 97.6 F 03/18/24 11:41 Pulse Rate 98 03/18/24 11:41 Respiratory Rate 16 03/18/24 11:41 Blood Pressure 133/93 H 03/18/24 11:41 Pulse Oximetry 100 03/18/24 11:41 Procedures Orthopedic Splinting/Casting Injury #1: Splinting/Casting Date: 03/18/24 Side: right Upper Extremity Injury Location: wrist Splint: customized in ED OCL: sugar tong Pre-Procedure Neuro Vascular Exam: normal Post-Procedure Neuro Vascular Exam: normal Additional Comments: Tolerated without com
[2024-03-18] MEDS: HYDROcodone/acetaminophen (*CRX) 5-325 MG TABLET 1 TAB PO (14:50)
== END 2024-03-18 15:30 | disposition home or self-care (01) ==
PROVIDERS: Emergency Provider Emergency Medicine; PCP Internal Medicine
DX: S00.83XA Contusion of other part of head, initial encounter (principal); S52.501A Unspecified fracture of the lower end of right radius, initial encounter for closed fracture; F41.9 Anxiety disorder, unspecified; I10 Essential (primary) hypertension; E78.5 Hyperlipidemia, unspecified; W06.XXXA Fall from bed, initial encounter
CPT/HCPCS: 29125; 70450; 72125; 73110; 99284; A4565; A9270

== ENCOUNTER 2024-06-01 23:22 | Emergency (ER) | payer MEDICARE, SELFPAY ==
--- NOTE | ~2024-06-01 | XR_ITS ---
EXAMINATION: XR chest 2V DATE: 06/02/2024 01:59 INDICATION: Cough. TECHNIQUE: Frontal and lateral views of the chest were obtained. COMPARISON: Chest single view 03/17/2024 FINDINGS: There is mild atelectasis at left lung base. No pleural effusion or pneumothorax. The heart size is normal. IMPRESSION: 1. Mild atelectasis at left lung base. Reviewed, dictated and finalized at location A. [employer] DISPATCHER
[2024-06-01 23:26] VITALS: BP 187/81; PULSE 72; RESP 16; TEMP 36.6; O2SAT 100
--- NOTE | 2024-06-02 01:36 | ED.BACK ---
HPI - Back Pain/Injury General Chief Complaint: Back Pain/Injury Stated Complaint: back pain, mid right side, non radiating Time Seen by Provider: 06/02/24 01:02 Source: patient and family Mode of arrival: ambulatory Limitations: no limitations History of Present Illness HPI Narrative: This is an 83-year-old female, with history hypertension, who presents emergency department complaining of back pain. She states this is been present for the past day and half. She describes it as just pain and rates it 7/10. She states she has had some nonproductive cough associated with this, though denies chest pain or shortness of breath. She has no other complaints at this time. Related Data Home Medications Medication Instructions Recorded Confirmed lisinopril 40 mg tablet 40 mg PO DAILY 09/02/21 04/26/24 lorazepam 1 mg tablet 1 mg PO DAILY PRN 09/02/21 04/26/24 metoprolol succinate 50 mg 50 mg PO DAILY 09/02/21 04/26/24 tablet,extended release 24 hr pravastatin 40 mg tablet 40 mg PO QHS 09/02/21 04/26/24 triamcinolone acetonide 0.1 % 1 applic topical DAILY 09/02/21 04/26/24 topical ointment Allergies Allergy/AdvReac Type Severity Reaction Status Date / Time ciprofloxacin Allergy Severe PASSES OUT Verified 04/26/24 11:32 Penicillins Allergy Intermediate Rash Verified 04/26/24 11:32 erythromycin base AdvReac Unknown Nausea and Verified 04/26/24 11:32 Vomiting Review of Systems Review of Systems: All systems reviewed & are unremarkable except as noted in HPI and below PMFSH Past Medical History Medical History Anxiety Cataract High blood cholesterol Hypertension Screening mammogram, encounter for Surgical History Surgical History History of breast surgery at age 17 & 21 lt breast tumors removed--benign History of hip replacement 2007 rt hip History of knee surgery both knees History of total abdominal hysterectomy bilateral ovarian cysts--benign Family History Family History Father Lung cancer Social History Social History Smoking status: Never smoker Second hand tobacco smoke exposure: Yes Alcohol intake: never Substance use: never Substance use type: does not use Do You Feel Safe in your Home?: Yes Lack of Transportation: No Lack of Food: Never True Current Housing: I Have Housing Concerned About Future Housing: No Difficulty Paying Gas/Electric Bills: No Difficulty Paying for Meds: No Currently Unemployed: No Education: High School Diploma/GED Difficulty w/ Childcare or Family Care: No Living arrangements: group home village Additional living arrangements comments: Occupation/Education: retired Additional occupation/education comments: House Gender identity (if verbalized by the patient): Female Sexual Orientation (if Verbalized by the Patient): Straight or Heterosexual Exam Narrative: GENERAL: Well-developed, well-nourished, and in no acute distress. HEAD: Normocephalic, atraumatic. EYES: PERRLA and EOMI. CHEST: Clear to auscultation. No respiratory distress. No wheezes rales or rhonchi HEART: Regular rate and rhythm. No murmur heard. Normal peripheral pulses. ABDOMEN: Soft, nontender, nondistended, normal active bowel sounds. BACK: Tender to palpation of the left back at the inferior border of the scapula. There is no noted erythema or fluctuance. No midline spine tenderness to palpation, step-off or crepitus EXTREMITIES: Normal range of motion. No edema. SKIN: Multiple diffuse seborrheic keratoses. Skin otherwise warm, dry, no rash. NEURO: Alert and oriented x3. No focal deficit. Moving all 4 limbs spontaneously PSYCH: Normal mood and affect. Course Course Emergency Course: 04:11 - Chest x-ray not concerning for cardiopulmonary process however there are osteoarthritic changes noted in the left shoulder. CBC unremarkable. Chemistries demonstrate mildly elevated calcium of 10.8 but is otherwise unremarkable. UA negative. On re-evaluation, patient states her pain is improved with lidocaine patches. I suspect a musculoskeletal cause for the patient's pain Will discharge. I discussed the findings and recommendations with[ ]. Discussed return and emergency precautions including signs/symptoms of[ ]. The[ ] voiced understanding and agreement with the plan. All questions answered to[ ] satisfaction. Vital Signs Vital signs: Vital Signs Temperature 97.9 F 06/01/24 23:26 Pulse Rate 72 11/08/24 23:26 Respiratory Rate 16 06/01/24 23:26 Blood Pressure 187/81 H 06/01/24 23:26 Pulse Oximetry 100 06/01/24 23:26 Oxygen Delivery Room Air 06/01/24 23:26 Temperature 97.9 F 06/01/24 23:26 Pulse Rate 63 06/02/24 02:29 Respiratory Rate 15 06/02/24 02:29 Blood Pressure 140/62 06/02/24 02:29 Pulse Oximetry 99 06/02/24 02:29 Oxygen Delivery Room Air 06/01/24 23:26 MDM - Back Pain/Injury MDM Narrative Medical decision making narrative: plan: Imaging, labs, pain control, reassess Differential Diagnosis Differential diagnosis: Likely thoracic back pain and other ( pneumonia, rhomboid strain, contusion, costochondritis, pneumothorax, metabolic abnormality, other) Lab Data 06/02/24 02:09 06/02/24 02:09 Labs: Lab Results 06/02/24 06/02/24 Range/Units 02:09 02:24 WBC 7.1 (4.5-10.0) K/mm3 RBC 4.39 (4.2-5.4) M/mm3 Hgb 13.0 (12.0-15.0) g/dL Hct 39.0 (37.0-47.0) % MCV 88.8 (80-100) fl MCH 29.6 (26-34) pg MCHC 33.3 (32-36) g/dl RDW 12.6 (11.5-14.5) % Plt Count 176 (150-375) k/mm3 MPV 9.0 (7.4-10.4) fl Immature Gran % (Auto) 0.3 (0-0.5) % Neut % (Auto) 48.3 (45.5-73.1) % Lymph % (Auto) 38.8 (18.3-44.2) % [place] % (Auto) 8.9 H (2.6-8.5) % Eos % (Auto) 3.4 (0-4.4) % Baso % (Auto) 0.3 (0.2-1.2) % Lymph # (Auto) 2.75 (0.9-3.2) K/mm3 [place] # (Auto) 0.6 (0.1-0.6) K/mm3 Eos # (Auto) 0.2 (0-0.3) K/mm3 Baso # (Auto) 0.0 (0.0-0.1) K/mm3 Abs Immat Gran (auto) 0.02 (0.00-0.031) K/mm3 Absolute Neuts (auto) 3.4 (1.3-6.7) K/mm3 Absolute Nucleated RBC 0.000 (0.0-0.012) K/mm3 Nucleated RBC % 0.0 (0.0-0.2) % Sodium 135 L (137-145) mmol/L Potassium 4.0 (3.4-5.0) mmol/L Chloride 101 (98-107) mmol/L Carbon Dioxide 28 (22-30) mmol/L Anion Gap 6 (4-12) mmol/L BUN 21 H (7-17) mg/dL Creatinine 1.00 (0.7-1.0) mg/dL Estim Creat Clear Calc 35 ml/min Estimated GFR 53 L (59 - ) Glucose 111 H (65-110) mg/dL Calcium 10.8 H (8.4-10.2) mg/dL Total Bilirubin 0.6 (0.2-1.3) mg/dL AST 18 (14-36) U/L ALT 12 (6-35) U/L Alkaline Phosphatase 83 (38-126) U/L Total Protein 7.0 (6.3-8.2) g/dL Albumin 3.9 (3.5-5.1) g/dL Urine Color Yellow (Yellow) Urine Appearance Clear (Clear) Urine pH 6.0 (5.0-9.0) Ur Specific [place] 1.016 (1.001-1.035) Urine Protein Negative (Negative) mg/dL Urine Glucose (UA) Negative (Negative) mg/dL Urine Ketones Negative (Negative) mg/dL Ur Blood (Man) Negative (Negative) Urine Nitrate Negative (Negative) Urine Bilirubin Negative (Negative) Urine Urobilinogen 0.2 (<2.0) mg/dL Leukocyte Esterase Rfl Negative (Negative) TEJAL/UL Discharge Plan Discharge Clinical Impression: Acute thoracic back pain Qualifiers: Back pain laterality: left Qualified Code(s): M54.6 - Pain in thoracic spine Patient Disposition: Home, Self-Care Condition: Stable Instructions: Antibiotic Form, Back Pain (ED) Additional Instructions: You were seen in the emergency department. an x-ray was not concerning for pneumonia or injury to the lung low did show arthritic changes in the left shoulder. Your labs are not concerning for liver kidney injury and urinalysis was not concerning for urinary tract infection. I suspect your pain is muscular in nature. I recommend lidocaine patches and follow-up with your primary care doctor. If you develop chest pain, shortness of breath, loss of consciousness, or if you have other emergent concerns for life, limb, or eyesight, return to the emergency department. Patient Language: Polish Prescriptions: New lidocaine 5 % adhesive patch,medicated 1 patch topical DAILY Qty: 30 0RF Rx Instructions: leave on most painful area for up to 12 hrs No Action lisinopril 40 mg tablet 40 mg PO DAILY lorazepam 1 mg tablet 1 mg PO DAILY PRN metoprolol succinate 50 mg tablet extended release 24 hr 50 mg PO DAILY pravastatin 40 mg tablet 40 mg PO QHS triamcinolone acetonide 0.1 % ointment 1 applic topical DAILY hydrocodone-acetaminophen 5-325 mg tablet 1 tablet PO Q8H PRN (Reason: pain) Qty: 20 0RF nystatin-triamcinolone 100,000-0.1 unit/g-% cream 1 applic topical BID Qty: 30 3RF estradiol 0.01 % (0.1 mg/gram) cream See Rx Instructions .ROUTE .COMPLEX Qty: 42.5 3RF Dose Instruction: USE 1 GRAM VAGINALLY EVERY DAY AT BEDTIME Rx Instructions: USE 1 GRAM VAGINALLY EVERY DAY AT BEDTIME Follow-up/Referrals: Salinas,Florentino Pruitt MD [Primary Care Provider] - 2 Weeks Time of Disposition: 04:14
[2024-06-02] MEDS: LIDOCAINE 5% PATCH 1 PATCH TRANSDERM (01:38)
[2024-06-02 02:14] LABS: Basophils Percent Auto 0.3 % (0.2-1.2); Eosinophils Absolute Auto 0.2 K/mm3 (0-0.3); Eosinophils Percent Auto 3.4 % (0-4.4); Immature Granulocyte Absolute 0.02 K/mm3 (0.00-0.031); Immature Granulocyte Percent A 0.3 % (0-0.5); Lymphocytes Absolute Auto 2.75 K/mm3 (0.9-3.2); Lymphocytes Percent Auto 38.8 % (18.3-44.2); Mean Corpuscular HGB Conc 33.3 g/dl (32-36); Mean Corpuscular Hemoglobin 29.6 pg (26-34); Mean Corpuscular Volume 88.8 fl (80-100); Monocytes Absolute Auto 0.6 K/mm3 (0.1-0.6); Monocytes Percent Auto 8.9 % (2.6-8.5); Neutrophils Absolute Auto 3.4 K/mm3 (1.3-6.7); Neutrophils Percent Auto 48.3 % (45.5-73.1); Platelet Count Result 176 k/mm3 (150-375); Red Blood Count 4.39 M/mm3 (4.2-5.4); Red Cell Distribution Width 12.6 % (11.5-14.5); White Blood Count 7.1 K/mm3 (4.5-10.0)
[2024-06-02 02:25] LABS: Alanine Aminotransferase 12 U/L (6-35); Albumin Level 3.9 g/dL (3.5-5.1); Alkaline Phosphatase 83 U/L (38-126); Anion Gap 6 mmol/L (4-12); Aspartate Amino Transferase 18 U/L (14-36); Bilirubin,Total 0.6 mg/dL (0.2-1.3); Blood Urea Nitrogen 21 mg/dL (7-17); Calcium 10.8 mg/dL (8.4-10.2); Carbon Dioxide 28 mmol/L (22-30); Chloride 101 mmol/L (98-107); Estimated CRCL calculation 35 ml/min; Estimated Glomerular Filt Rate 53; Glucose 111 mg/dL (65-110); Sodium 135 mmol/L (137-145)
[2024-06-02 02:29] VITALS: BP 140/62; PULSE 63; RESP 15; O2SAT 99
[2024-06-02 02:35] LABS: Add Urine Microscopic? NO; Appearance Urine Clear (Clear); Bilirubin Urine Negative (Negative); Blood Urine Negative (Negative); Color Urine Yellow (Yellow); Glucose Urine UA Negative (Negative); Ketones Urine Negative (Negative); Leukocyte Esterase Ur Negative LEU/UL (Negative); Nitrate Urine Negative (Negative); Protein Urine Negative (Negative); Specific Grav Ur 1.016 (1.001-1.035); Urobilinogen Urine 0.2 mg/dL (<2.0)
== END 2024-06-02 04:27 | disposition home or self-care (01) ==
PROVIDERS: Emergency Provider Preventive Medicine Aerospace Medicine; PCP Internal Medicine
DX: M54.6 Pain in thoracic spine (principal); I10 Essential (primary) hypertension; F41.9 Anxiety disorder, unspecified
CPT/HCPCS: 36415; 71046; 80053; 81003; 85025; 99283; A9270

== ENCOUNTER 2025-06-19 01:34 | Emergency (ER) | payer MEDICARE, SELFPAY ==
[2025-06-19] VITALS (14 sets, daily range): BP systolic 159–189; BP diastolic 75–94; PULSE 64; RESP 18; TEMP 36.9; O2SAT 98–100
--- NOTE | ~2025-06-19 | CT_ITS ---
CT HEAD NON-CONTRAST Clinical History: chi Comparison: CT brain 03/18/2024 Technique: Unenhanced axial images skull base to vertex Coronal, sagittal reformats CT images acquired with automatic exposure control for dose reduction DLP: 681 mGy-cm Findings: 3 cm mass medial left frontal lobe isodense to almanza matter. Chronic white matter microvascular ischemic changes. Sulci, ventricles: Unremarkable. No intracerebral hemorrhage. No evidence acute territorial infarct. No mass effect, midline shift. Bony calvarium intact. Visualized paranasal sinuses: Clear. Mastoid air cells: Clear. Multiple skin lesions as before. IMPRESSION: 1. No acute intracranial findings. 2. Left frontal lobe mass not significantly changed. Recommend MRI if not already characterized as meningioma. 3. Multiple skin lesions as before. Reviewed, dictated and finalized at location R. APHONE TYPIST IMPRESSION: 1. No acute intracranial findings. 2. Left frontal lobe mass not significantly changed. Recommend MRI if not alre justyn characterized as meningioma. 3. Multiple skin lesions as before.
--- NOTE | ~2025-06-19 | XR_ITS ---
XR elbow RT min 3V 06/19/2025 02:44 INDICATION: Right elbow pain after fall PROCEDURE: 4 views right elbow COMPARISON: No prior studies for comparison. FINDINGS: Fracture, dislocation or subluxation is not identified. No significant joint effusion. Osteopenia. The soft tissues appear within normal limits. No foreign bodies are identified. IMPRESSION: 1: NO ACUTE BONE OR JOINT ABNORMALITY IDENTIFIED. Reviewed, dictated and finalized at location O. MIXER
--- NOTE | ~2025-06-19 | XR_ITS ---
XR shoulder RT min 2V 06/19/2025 02:03 Indication: Right shoulder pain after fall Procedure: 4 views right shoulder Comparison: No prior studies for comparison. Findings: There is a minimally displaced right humeral neck fracture. There is severe osteoarthritis of the right shoulder with remodeling of the glenohumeral joint. Osteopenia. Impression: 1: Minimally displaced right humeral neck fracture. 2: Severe osteoarthritis right joint. Reviewed, dictated and finalized at location O. LER PLATER Impression: 1: Minimally displaced right humeral neck fracture. 2: Severe osteoarthritis right joint.
--- NOTE | 2025-06-19 01:53 | PC.NURSE ---
Caregiver is at the bedside and informed this nurse that pt fell out of bed. Caregiver reported that pt grabbed her blanket and attempted to get out of bed by herself fell over hitting her head on the wall with no LOC. Pt also hit her back and her right shoulder.
[2025-06-19] MEDS: HYDROcodone/acetaminophen (*CRX) 5-325 MG TABLET 1 TAB PO (02:52)
--- OUTSIDE RECORDS SUMMARY | 2025-06-19 03:10 | XMS_ITS | Encounter Summary ---
Author Organization [facility] Healthcare Address [address] [place] [address] Care Team Providers Care Retail Zone Specialist Name Role Phone Andrew Alicia MD Primary Care Provider [phone] Florentino Niño MD Primary Care Provider [phone] Reason for Referral * Diagnostic Imaging (Routine) - Closed Specialty Diagnoses / Procedures Referred By Shayy ramirez Referred To Contact Radiology Diagnoses Pulmonary nodules Procedures CT Chest WO Contrast Andrew Alicia MD Phone: tel: fax: [address] [phone] Referral ID Status Reason Start Date Expiration Date Visits Re quested Visits Authorized [id number] Closed 07/04/2018 01/13/2020 1 1 [employer] Encounter Details Date Type Department Care Team (Late st Contact Info) Description 07/04/2018 Community Orders [facility] EpicCare Link Andrew Alicia MD [id number] [facility] [address] [place] [address] Pulmonary nodules (Primary Dx) Social History Tobacco Use Types Packs/Day Years Used Date Smoking Tobacco: Never Comments Unknown Sex and Gender Information Value Date Recorded Sex Assigned at Not on file Legal Sex Female 7:50 PM [employer] Gender Identity Not on file Sexual Orientation Not on file documented as of this encounter Plan of Treatment Not on file documented as of this encounter Results * CT Chest WO Contrast (10/17/2018 10:46 AM CDT) Anatomical Region Laterality Modality Body N/A Computed Tomogra phy 10/17/2018 10:5 6 AM CDT Impressions 10/17/2018 10:56 AM CDT 1. No suspicious pulmonary nodule. Electronically signed by: Harpal Bhardwaj M.D. Narrative 10/17/2018 10:56 AM CDT EXAMINATION: Computed tomography of the chest without intravenous contrast HISTORY: Pulmonary nodules TECHNIQUE: Transaxial computed tomographic images of the chest were obtained without intravenous contrast according to the standard protocol. COMPARISON: 01/02/2018 FINDINGS: 2 mm left upper lobe pulmonary nodule at table position 27.1 is unchanged. No new pulmonary nodule or mass. No pleural effusion pneumothorax or consolidation. The central airways are widely patent. Calcified right lower lobe nodule and mediastinal lymph nodes are in keeping with healed granulomatous disease. No axillary supraclavicular mediastinal or hilar lymphadenopathy. Heart size is normal with small pericardial effusion. The thoracic aorta is atherosclerotic but nonaneurysmal. Diffuse hepatic steatosis is present in the upper abdomen. There are stones in a noninflamed gallbladder. The pancreas adrenal glands spleen and kidneys are normal. Review of bone windows demonstrates no suspicious osseous lesion. 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 Procedure Note Harpal Bhardwaj MD - 10/17/2018 EXAMINATION: Computed tomography of the chest without intravenous contrast HISTORY: Pulmonary nodules TECHNIQUE: Transaxial computed tomographic images of the chest were obtained without intravenous contrast according to the standard protocol. COMPARISON: 01/02/2018 FINDINGS: 2 mm left upper lobe pulmonary nodule at table position 27.1 is unchanged. No new pulmonary nodule or mass. No pleural effusion pneumothorax or consolidation. The central airways are widely patent. Calcified right lower lobe nodule and mediastinal lymph nodes are in keeping with healed granulomatous disease. No axillary supraclavicular mediastinal or hilar lymphadenopathy. Heart size is normal with small pericardial effusion. The thoracic aorta is atherosclerotic but nonaneurysmal. Diffuse hepatic steatosis is present in the upper abdomen. There are stones in a noninflamed gallbladder. The pancreas adrenal glands spleen and kidneys are normal. Review of bone windows demonstrates no suspicious osseous lesion. 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 IMPRESSION: 1. No suspicious pulmonary nodule. Electronically signed by: Harpal Bhardwaj M.D. Andrew Alicia MD IMG CT PROCEDURES Final Result documented in this encounter Visit Diagnoses Diagnosis Pulmonary nodules- Primary Other diseases of lung, not elsewhere classified Pulmonary nodules Other diseases of lung, not elsewhere classified documented in this encounter Care Teams Retail Zone Specialist Relationship Specialty Start Date End Date Andrew Alicia MD [address] [address] PCP - General 03/11/17 07/12/21 Florentino Niño MD [address] [address] PCP - General Internal Medicine 07/13/21 documented as of this encounter
--- NOTE | 2025-06-19 03:11 | ED.FALL ---
HPI - Fall General Chief Complaint: Fall Stated Complaint: R SHOULDER PAIN S/P FALL OUT OF BED Time Seen by Provider: 06/19/25 01:56 History of Present Illness HPI Narrative: 24-year-old female living at group home facility with 24 hour caregiver presenting to the emergency department today after she had a mechanical fall. Patient was trying to get out of bed and go to the bathroom and then she tripped on the rug fell on her right shoulder. Did hit her head on the ground but did not lose consciousness. Does not take any blood thinner medications. She is complaining of significant pain in her right shoulder. No significant pain the elbow and she has good physicist acoustics strength and range of motion of the wrist and elbow. Did have a recent Colles fracture of the right radius that has since healed. Was otherwise in her normal state of health. Denies any headache, vision changes, chest pain, shortness a breath, back pain, nausea, vomiting, diarrhea, loss of continence. Acting at her baseline mentation according to family and caregiver at bedside. Related Data Home Medications ?Medication ?Instructions ?Recorded ?Confirmed ?Last Taken ?Type lisinopril 40 mg tablet 40 mg PO DAILY 09/02/21 04/26/24 Unknown History lorazepam 1 mg tablet 1 mg PO DAILY PRN 09/02/21 04/26/24 Unknown History metoprolol succinate 50 mg 50 mg PO DAILY 09/02/21 04/26/24 Unknown History tablet,extended release 24 hr pravastatin 40 mg tablet 40 mg PO QHS 09/02/21 04/26/24 Unknown History triamcinolone acetonide 0.1 % 1 applic topical DAILY 09/02/21 04/26/24 Unknown History topical ointment Allergies Allergy/AdvReac Type Severity Reaction Status Date / Time ciprofloxacin Allergy Severe PASSES OUT Verified 04/26/24 11:32 Penicillins Allergy Intermediate Rash Verified 04/26/24 11:32 erythromycin base AdvReac Unknown Nausea and Verified 04/26/24 11:32 Vomiting Review of Systems Review of Systems: As reviewed above in HPI All systems reviewed & are unremarkable except as noted in HPI and below PMFSH Past Medical History Medical History Screening mammogram, encounter for Cataract High blood cholesterol Hypertension Anxiety Surgical History Surgical History History of breast surgery at age 17 & 21 lt breast tumors removed--benign History of total abdominal hysterectomy bilateral ovarian cysts--benign History of hip replacement 2008 rt hip History of knee surgery both knees Family History Family History Father Lung cancer Social History Social History Smoking status: Never smoker Second hand tobacco smoke exposure: Yes Alcohol intake: never Substance use: never Substance use type: does not use Lack of Transportation: No Lack of Food: Never True Current Housing: I Have Housing Concerned About Future Housing: No Difficulty Paying Gas/Electric Bills: No Difficulty Paying for Meds: No Currently Unemployed: No Education: High School Diploma/GED Difficulty w/ Childcare or Family Care: No Living arrangements: shelter [facility] Additional living arrangements comments: Occupation/Education: retired Additional occupation/education comments: House Gender identity (if verbalized by the patient): Female Sexual Orientation (if Verbalized by the Patient): Straight or Heterosexual Exam Narrative: GENERAL: [Well-appearing, well-nourished, and in no acute distress.] HEAD: [Normocephalic, atraumatic.] EYES: [PERRLA and EOMI.] ENT: Nares clear, no rhinorrhea or epistaxis. Mucous membranes moist. NECK: Supple. CHEST: [Clear to auscultation. No respiratory distress.] HEART: [Regular rate and rhythm]. No murmur heard. [Normal peripheral pulses.] ABDOMEN: [Soft, nondistended], [nontender], [No rigidity or guarding] EXTREMITIES: Tender to palpation of the right proximal humerus, no step-offs deformities. No bruising overlying the shoulder joint. Good range of motion of the elbow and physicist acoustics strength. 5/5 strength in the extremity distally. 2+ radial and ulnar pulse and warm extremity. Able to oppose each digit make a thumbs up and okay sign without difficulty. SKIN: Warm, dry, no rash. NEURO: Very hard of hearing but otherwise normal mentation at baseline, no focal deficits. PSYCH: [Normal mood and affect.] Course Vital Signs Vital signs: Vital Signs Temperature 36.9 C 11/26/25 01:36 Pulse Rate 64 06/19/25 01:36 Respiratory Rate 18 06/19/25 01:36 Blood Pressure 186/94 H 06/19/25 01:36 Pulse Oximetry 100 06/19/25 01:36 Temperature 36.9 C 06/19/25 01:36 Pulse Rate 64 06/19/25 01:36 Respiratory Rate 18 06/19/25 01:36 Blood Pressure 159/80 H 06/19/25 04:46 Pulse Oximetry 98 06/19/25 04:46 MDM - Fall MDM Narrative Medical decision making narrative: 24-year-old female living at [facility] with 24 hour caregiver presenting to the emergency department today after she had a mechanical fall. Patient was trying to get out of bed and go to the bathroom and then she tripped on the rug fell on her right shoulder. Did hit her head on the ground but did not lose consciousness. Does not take any blood thinner medications. She is complaining of significant pain in her right shoulder. No significant pain the elbow and she has good physicist acoustics strength and range of motion of the wrist and elbow. Did have a recent Colles fracture of the right radius that has since healed. Was otherwise in her normal state of health. Denies any headache, vision changes, chest pain, shortness a breath, back pain, nausea, vomiting, diarrhea, loss of continence. Acting at her baseline mentation according to family and caregiver at bedside. Tender to palpation of the right proximal humerus, no step-offs deformities. No bruising overlying the shoulder joint. Good range of motion of the elbow and physicist acoustics strength. 5/5 strength in the extremity distally. 2+ radial and ulnar pulse and warm extremity. Able to oppose each digit make a thumbs up and okay sign without difficulty. X-rays of the right shoulder elbow and CT of the head was obtained. Patient is mildly hypertensive but not causing any symptoms. Vital signs unremarkable otherwise. She was given [place] for analgesia with good effect. Placed into a shoulder immobilizer after x-ray confirms proximal humerus fracture without displacement. Elbow appears intact without any displacement or obvious fracture per my interpretation. Awaiting head CT results prior to safe discharge back to her facility with orthopedics referral. Patient already has pain medications available to her prescribed. CT scan of the head shows no acute intracranial abnormality or hemorrhage. Chronic meningioma suspected. Elbow x-ray unremarkable. Shoulder x-ray shows fracture. Placed immobilization with good pain control. Safe for discharge with orthopedics referral. Medical Records Attestation: I reviewed the patient's medical records. Imaging Data Attestation: I personally reviewed and interpreted this imaging study as follows: My impression: Meningioma, stable. Proximal humerus fracture. Discharge Plan Discharge Clinical Impression: Fracture of proximal end of humerus Patient Disposition: NH [facility] Living Condition: Stable Instructions: Antibiotic Form, Proximal Humerus Fracture (ED) Additional Instructions: X-ray show proximal humerus fracture. Usually non operable and was heal naturally on its own immobilizer/sling. Tylenol and ibuprofen every 6-8 hours for pain control and use her at home [place] for breakthrough pain. Return with any emergent concerns. Follow-up with orthopedics. Patient Language: Kazakh Prescriptions: No Action lisinopril 40 mg tablet 40 mg PO DAILY lorazepam 1 mg tablet 1 mg PO DAILY PRN metoprolol succinate 50 mg tablet extended release 24 hr 50 mg PO DAILY pravastatin 40 mg tablet 40 mg PO QHS triamcinolone acetonide 0.1 % ointment 1 applic topical DAILY hydrocodone-acetaminophen 5-325 mg tablet 1 tablet PO Q8H PRN (Reason: pain) Qty: 20 0RF lidocaine 5 % adhesive patch,medicated 1 patch topical DAILY Qty: 30 0RF Rx Instructions: leave on most painful area for up to 12 hrs nystatin-triamcinolone 100,000-0.1 unit/g-% cream 1 applic topical BID Qty: 30 3RF estradiol 0.01 % (0.1 mg/gram) cream See Rx Instructions .ROUTE .COMPLEX Qty: 42.5 3RF Dose Instruction: USE 1 GRAM VAGINALLY EVERY DAY AT BEDTIME Rx Instructions: USE 1 GRAM VAGINALLY EVERY DAY AT BEDTIME clobetasol 0.05 % ointment 1 applic topical QHS Qty: 30 0RF Rx Instructions: Apply vaginally QHS Follow-up/Referrals: Joel Montero MD [Physician, Orthopedics] - 1 Week Referral Note: Proximal humerus fracture Sal[place],Florentino Pruitt MD [Primary Care Provider] Time of Disposition: 04:55
--- NOTE | 2025-06-19 05:20 | PC.NURSE ---
Notified [facility] that pt is on her way home and the results of her X-rays.
== END 2025-06-19 05:21 ==
PROVIDERS: Emergency Provider Student in an Organized Health Care Education/Training Program; PCP Internal Medicine
DX: S42.211A Unspecified displaced fracture of surgical neck of right humerus, initial encounter for closed fracture (principal); I10 Essential (primary) hypertension; E78.00 Pure hypercholesterolemia, unspecified; F41.9 Anxiety disorder, unspecified; Z96.641 Presence of right artificial hip joint; Z90.710 Acquired absence of both cervix and uterus; Z77.22 Contact with and (suspected) exposure to environmental tobacco smoke (acute) (chronic); M19.011 Primary osteoarthritis, right shoulder; W18.09XA Striking against other object with subsequent fall, initial encounter
CPT/HCPCS: 70450; 73030; 73080; 99284; A9270